=== PATIENT | male | born 1950 | race Two or more races ===

== ENCOUNTER → 2020-11-02 08:00 | Outpatient (CLI) | payer OTHER ==
[~2020-11-02] VITALS: Ht 165.1 cm; Wt 71.2 kg
[~2020-11-02 08:00] MED LIST: CARVEDILOL12.5 M1 PO; FENOFIBRATE145 MG PO; JANUMET 50-1,01 EACH PO; LIPITOR20 MG PO; LOSARTAN-HCTZ1 EACH PO; NORVASC5 MG PO; SYNTHROID100 MCG PO
== END | disposition home or self-care (01) ==
LOC: LAB 08:00 → SURH 11-09 12:30 → EDSTATUS 11-09 12:30
PROVIDERS: ATTEND Surgery
DX: D12.5 Benign neoplasm of sigmoid colon (principal); D37.4 Neoplasm of uncertain behavior of colon; R59.0 Localized enlarged lymph nodes; D12.6 Benign neoplasm of colon, unspecified; Z20.822 Contact with and (suspected) exposure to COVID-19

== ENCOUNTER 2020-11-05 07:10 | Day surgery (SDC) | payer OTHER | END 2020-11-05 10:10 | disposition home or self-care (01) | LOC: AMB-ENDOS 07:10 | PROVIDERS: ATTEND Surgery | DX: D12.5 Benign neoplasm of sigmoid colon (principal); D12.8 Benign neoplasm of rectum; Z20.822 Contact with and (suspected) exposure to COVID-19 ==